=== PATIENT | female | born 1965 | race Caucasian/White ===

== ENCOUNTER 2018-04-28 06:41 | Emergency (ER) | payer SELFPAY ==
[~2018-04-28] VITALS: Ht 170.2 cm; Wt 149.7 kg
[2018-04-28 06:45] VITALS: BP 173/90
--- NOTE | 2018-04-28 06:45 | NUR ---
TO BED # 2 AMBULATORY, REPORT GIVEN TO ANN RN
--- NOTE | 2018-04-28 07:01 | NUR ---
PT BIB SELF C/O HEADACHE SINCE LAST NIGHT. PT DENIES ANY TRAUMA. PT DENIES N/V/D; SKIN IS INTACT, FLUSHED/WARM/DRY; AAOX4, PERRL, WITH EVEN AND STEADY GAIT; LUNGS CLEAR BL, BREATHING UNLABORED; HR EVEN AND REGULAR, BL PERIPHERAL PULSES PRESENT; BS ACTIVE X4, NO TENDERNESS TO PALPATION. PT DENIES ANY FEVER, CP, SOB, OR COUGH AT THIS TIME; PT STATES 8/10 PAIN AT THIS TIME; VSS; PATIENT POSITIONED FOR COMFORT; HOB ELEVATED; BEDRAILS UP X2; BED DOWN.
[2018-04-28] MEDS ORDERED: [UNRECOGNIZED DRUG - CODE] (07:04)
--- NOTE | 2018-04-28 07:22 | NUR ---
ASSUMED CARE, UPON ASSESSMENT, PT STATES "I ALREADY TALKED TO THE OTHER NURSE, I JUST WANT A RX." INFORMED THAT ERMD WOULD BE IN SHORTLY TO EXAMINE HER. NO FURTHER QUESTIONS.
--- NOTE | 2018-04-28 07:51 | NUR ---
NOTED THAT PT LEFT WITHOUT D/C PAPERWORK AFTER TALKING WITH DR ALLEN. CN INFORMED.
--- NOTE | 2018-04-28 07:53 | NUR ---
PT REFUSED Written and verbal after care instructions mbulatory with steady gait. . Advised to follow up with PMD.
[2018-04-28 07:54] VITALS: BP 173/90
== END 2018-04-28 07:53 | disposition home or self-care (01) ==
LOC: MED 06:41
DX: G43.909 Migraine, unspecified, not intractable, without status migrainosus (principal); I10 Essential (primary) hypertension; M19.90 Unspecified osteoarthritis, unspecified site; F17.210 Nicotine dependence, cigarettes, uncomplicated
CPT/HCPCS: 99281